=== PATIENT | female | born 1985 | race African-American/Black ===

== ENCOUNTER 2018-01-05 23:16 | Emergency (ER) | payer OTHER ==
[~2018-01-05] VITALS: Ht 162.6 cm; Wt 123.8 kg
[~2018-01-05 23:16] MED LIST: ERGO50000 PO; IBUP800 PO; TRAM50 PO
[2018-01-05 23:18] VITALS: PULSE 58; RESP 18; TEMP 97.7; O2SAT 97
[2018-01-05] MEDS ORDERED: IBUP1TAB7 PO (23:32)
[2018-01-05 23:35] VITALS: BP 143/93
[2018-01-05] MEDS ORDERED: LIDOCAINE HCL 1% 20 ML VIAL ONE (23:41)
[2018-01-05] MEDS ORDERED: LIDOCAINE HCL 1% 30 ML VIAL INFIL ONE (23:45)
[2018-01-06 00:32] VITALS: BP 116/77; PULSE 78; RESP 16; O2SAT 98
--- NOTE | 2018-01-06 00:43 | PD ---
HPI Chief Complaint: Laceration/Skin Injury Time Seen by Provider: 23:38 Travel History International Travel<30 days: No Contact w/Intl Traveler<30days: No Traveled to known affect area: No History of Present Illness HPI The patient is a 32-year-old female who presents to the emergency department for multiple lacerations to left hand. The patient was using an X-[employer] knife earlier tonight when she accidentally cut her left hand. The patient states she received a laceration to the extensor surface of the third digit just distal to the PIP, fourth digit on the volar aspect of the distal phalanx, and a laceration on the ulnar aspect of the second digit, distal phalanx, all which bled initially but stopped with pressure. The patient's last tetanus shot was 2012. She denies any difficulty with flexion or extension of the left hand at the MCP, PIP, DIP. Patient does not take any anticoagulants. She denies any numbness or tingling. Symptoms are moderate. She is right-hand dominant. PFSH Past Medical History Anxiety: Yes Diabetes: Yes (hypoglycemia and gestational diabetes) Patient Takes Glucophage: No Diminished Hearing: No Immunizations Current: Yes Tetanus Vaccination: < 5 Years Influenza Vaccination: Yes ?: Not LMP: "I DON'T GET ONE WITH THIS IUD" STATED 01/05/18 : 2 Para: 2 Miscarriage: 0 : 0 Social History Alcohol Use: No Tobacco Use: No Substance Use: No Allergies-Medications (Allergen,Severity, Reaction): Coded Allergies: ciprofloxacin (Verified Allergy, Mild, HIVES, 01/05/18) Reported Meds & Prescriptions Reported Meds & Active Scripts Active Reported Ibuprofen 800 Mg Tab 800 Mg PO Q8H PRN Review of Systems Except as stated in HPI: all other systems reviewed are Neg Musculoskeletal: Positive: Pain, No: Limited ROM Skin: Positive Other (Multiple lacerations to left hand) Neurologic: No: Paresthesia, Sensory Disturbance Physical Exam Narrative GENERAL: Awake, alert, pleasant 32-year-old female who appears her stated age and is in no acute respiratory distress. SKIN: Focused skin assessment warm/dry. HEAD: Atraumatic. Normocephalic. EYES: No injection or drainage. MUSCULOSKELETAL: No obvious deformities. No clubbing. No cyanosis. No edema. The patient is a 1.5 cm laceration to the extensor surface of the third digit just distal to the PIP. There is no visible tendon involvement. She is able to fully flex and extend the third digit at the MCP, PIP, and DIP. Capillary refill is less than 2 seconds. The patient also has a laceration of 1.5 cm in the volar aspect of the second digit left hand over the distal phalanx that is diagonal. No visible tendon involvement. She also has a 1 cm laceration over the distal phalanx on the ulnar aspect of the second digit left hand. She is able to fully flex and extend at the MCP, PIP, DIP of the second digit left hand. Capillary refill is less than 2 seconds. Radial pulses 2+ and symmetric. NEUROLOGICAL: Awake and alert. No obvious cranial nerve deficits. Motor grossly within normal limits. Normal speech. Sensation is intact to the radial , median, and ulnar distribution of the second and third digit. PSYCHIATRIC: Appropriate mood and affect; insight and judgment normal. Data Data Last Documented VS Vital Signs Date Time Temp Pulse Resp B/P (MAP) Pulse Ox O2 Delivery O2 Flow Rate FiO2 01/05/18 23:35 143/93 (110) 01/05/18 23:18 97.7 58 18 97 Orders Orders Lidocaine 1% Inj (Xylocaine 1% Inj) (01/05/18 23:45) Lidocaine 1% Inj (Xylocaine 1% Inj) (01/05/18 23:41) MDM Medical Decision Making Medical Screen Exam Complete: Yes Emergency Medical Condition: Yes Medical Record Reviewed: Yes Differential Diagnosis Differential diagnosis includes laceration, contusion, hematoma, skin tear, tendon laceration. Narrative Course The patient had a digital block using 1% lidocaine with a 27-gauge needle to the second and third digit of the left hand. The left hand was then draped and prepped in the normal sterile fashion, cleaned with sterile saline and Betadine , irrigated with sterile saline, closed in single-layer fashion. The patient is advised to have the sutures removed in 7-10 days, monitor for signs of infection, clean twice a day with soap and water and apply Polysporin to the affected area. Return if symptoms worsen or progress. Procedures Procedure Narrative LACERATION LOCATION: Second digit left hand LENGTH: 1 cm NUMBER OF STITCHES/KEERTHI: 1 REPAIR: The area of the laceration was prepped with Betadine and sterilely draped. Digital block was performed with 1% lidocaine. The wound was copiously irrigated and explored without evidence of foreign body, tendon injury or neurovascular injury. The wound was closed using 4-0 Prolene. This was a single layer repair. A sterile dressing was applied. The patient was advised to keep the dressing clean and dry. Patient tolerated the procedure well. LACERATION LOCATION: Second digit left hand LENGTH: 1.5 cm NUMBER OF STITCHES/KEERTHI: 2 REPAIR: The area of the laceration was prepped with Betadine and sterilely draped. Digital block with 1% lidocaine. The wound was copiously irrigated and explored without evidence of foreign body, tendon injury or neurovascular injury. The wound was closed using 4-0 Prolene. This was a single layer repair. A sterile dressing was applied. The patient was advised to keep the dressing clean and dry. Patient tolerated the procedure well. LACERATION LOCATION: Third digit left hand LENGTH: 1.5 cm NUMBER OF STITCHES/KEERTHI: 3 REPAIR: The area of the laceration was prepped with Betadine and sterilely draped. Digital block with 1% lidocaine using a 27-gauge needle. The wound was copiously irrigated and explored without evidence of foreign body, tendon injury or neurovascular injury. The wound was closed using 4-0 Prolene. This was a single layer repair. A sterile dressing was applied. The patient was advised to keep the dressing clean and dry. Patient tolerated the procedure well. Diagnosis Primary Impression: Multiple lacerations Patient Instructions: General Instructions Additional Instructions: Suture removal in 7-10 days. Clean area twice a day with soap and water. Polysporin twice a day. Monitor for signs of infection. Return if symptoms worsen or progress. Med/Other Pt SpecificInfo: No Change to Meds Disposition: 01 DISCHARGE HOME Condition: Stable Braeden Munoz MD January 06, 2018 00:42
== END 2018-01-06 00:48 | disposition home or self-care (01) ==
LOC: PHED 23:16
DX: S61.412A Laceration without foreign body of left hand, initial encounter (principal); W26.0XXA Contact with knife, initial encounter; F41.9 Anxiety disorder, unspecified
CPT/HCPCS: 12002